=== PATIENT | female | born 1980 | race American Indian/Alaskan Native ===

== ENCOUNTER 2019-12-23 14:48 | Emergency (ER) | payer MEDICAID ==
[2019-12-23] MEDS ORDERED: cefTRIAXone/NS 2 GM/100 ML 2 GM/100 ML BAG IV SCH (15:07)
[2019-12-23] MEDS ORDERED: SODIUM CHLORIDE 0.9% 1000 ML IV SOLN IV ONE (15:07)
[2019-12-23] MEDS ORDERED: ONDANSETRON 4 MG/2 ML INJ IV ONE (15:13)
[2019-12-23] MEDS ORDERED: MORPHINE 4 MG/1 ML INJ IV ONE (15:14)
[2019-12-23] MEDS ORDERED: ACETAMINOPHEN 325 MG TAB PO ONE (15:14)
--- NOTE | 2019-12-23 15:37 | XRay Report ---
CHEST 1 VIEW 12/23/2019 2:29 PM INDICATION / CLINICAL INFORMATION: sepsis protocol. Fever COMPARISON: None available. FINDINGS: SUPPORT DEVICES: None. HEART / MEDIASTINUM: No significant abnormality. LUNGS / PLEURA: No significant pulmonary or pleural abnormality. No pneumothorax. ADDITIONAL FINDINGS: No significant additional findings. IMPRESSION: 1. No acute findings. Signer Name: Buck Moore MD Signed: 12/23/2019 3:33 PM Workstation Name: [id number]
[2019-12-23 16:03] LABS: Hematocrit 37.5 % (30.3-42.9); Hemoglobin 12.3 gm/dl (10.1-14.3); Mean Corpuscular HGB Conc 33 % (30-34); Mean Corpuscular Volume 94 fl (79-97); Platelet Count 321 K/mm3 (140-440); Red Cell Distribution Width 14.1 % (13.2-15.2)
[2019-12-23 16:04] LABS: Alanine Aminotransferase 10 units/L (7-56); Albumin 3.7 g/dL (3.9-5); BUN/Creatinine Ratio 8; Blood Urea Nitrogen 10 mg/dL (7-17); Calcium 9.6 mg/dL (8.4-10.2); Hemolysis Index 5
[2019-12-23 16:05] LABS: C-Reactive Protein 31.7 mg/dL (0.00-1.30)
[2019-12-23 16:56] LABS: Basophils % (Manual) 0 % (0.0-1.8); Eosinophils % (Manual) 0 % (0.0-4.3); Total Cells Counted 100
[2019-12-23 17:00] LABS: Large Platelets Few; Platelet Estimate Consistent w Auto; Toxic Granulation 1+; Toxic Vacuolation 1+
[2019-12-23 17:54] LABS: Bilirubin,Urine NEG (Negative); Blood,Urine LG (Negative); Color,Urine Yellow (Yellow); Mucus,Urine FEW /HPF; Urobilinogen,Urine < 2.0 mg/dL (<2.0)
--- NOTE | 2019-12-23 18:01 | Cat Scan Report ---
CTA CHEST WITH IV CONTRAST INDICATION: elevated ddimer. TECHNIQUE: Axial CT images were obtained through the chest after injection of 100 cc Omni 350 IV contrast. 3 maribell ne MIP reconstructions were produced. All CT scans at this location are performed using CT dose reduc tion for ALARA by means of automated exposure control. COMPARISON: None available. FINDINGS: PULMONARY ARTERIES: No pulmonary emboli. THORACIC AORTA: No acute abnormality. HEART: Normal. CORONARY ARTERIES: No significant calcification. PLEURA: No pleural effusion. No pneumothorax. LYMPH NODES: No significant adenopathy. LUNGS: No acute air space or interstitial disease. ADDITIONAL FINDINGS: None. UPPER ABDOMEN: Gastric bypass surgery. 1.7 cm right upper pole renal cyst. Hepatomegaly. SKELETAL STRUCTURES: No significant osseous abnormality. IMPRESSION: 1. No CT evidence for pulmonary embolism. 2. No acute findings. 3. Hepatomegaly and gastric bypass surgery Signer Name: Buck Moore MD Signed: 12/23/2019 5:57 PM Workstation Name: [id number]
[2019-12-23] MEDS ORDERED: levoFLOXacin 500 MG TAB PO ONE (18:42)
--- NOTE | 2019-12-23 18:42 | Emergency Department Report ---
ED General Adult HPI - General Chief complaint: Fever Stated complaint: BODYAHCE Time Seen by Provider: 12/23/19 15:09 Source: patient, EMS Mode of arrival: Stretcher Limitations: No Limitations - History of Present Illness Initial comments: Patient is a 39-year-old F [place] female who is presenting with some body aches for the past 2 weeks who will just developed fever today. States she had a minimal cough earlier today but in general has not been congested. She denies shortness of breath loss of taste or smell. She had 2 episodes of nausea vo miting this morning as well. Her only other complaint is some mild lower back pain but denies any diarrhea abdominal pain dysuria or abnormal vaginal bleeding. Severity scale (0 -10): 5 - Related Data Home Medications Medication Instructions Recorded Confirmed Last Taken No Known Home Medications [No 05/05/15 04/09/16 Unknown Reported Home Medications] Allergies Allergy/AdvReac Type Severity Reaction Status Date / Time NSAIDS (Non-Steroidal AdvReac Unknown Verified 12/23/19 15:10 Anti-Inflamma ED Review of Systems ROS: Stated complaint: BODYAHCE Other details as noted in HPI Comment: All other systems reviewed and negative ED Past Medical Hx - Past Medical History Previous Medical History?: No Hx Hypertension: No Hx Asthma: No - Surgical History Hx Breast Surgery: Yes (BREAST REDUCTION 2014) Additional Surgical History: HYSTERECTOMY; BUNION removed bilateral feet/ gastric sleeve c section - Social History Smoking Status: Never Smoker Substance Use Type: None - Medications Home Medications: Home Medications Medication Instructions Recorded Confirmed Last Taken Type No Known Home Medications [No 05/05/15 04/09/16 Unknown History Reported Home Medications] ED Physical Exam - General Limitations: No Limitations General appearance: alert, in no apparent distress - Head Head exam: Present: atraumatic, normocephalic - Eye Eye exam: Present: normal appearance, PERRL, EOMI - ENT ENT exam: Present: mucous membranes moist - Neck Neck exam: Present: normal inspection - Respiratory Respiratory exam: Present: normal lung sounds bilaterally. Absent: respiratory distress, wheezes, rales, rhonchi - Cardiovascular Cardiovascular Exam: Present: normal rhythm, tachycardia. Absent: systolic murmur, diastolic murmur, rubs, gallop - GI/Abdominal GI/Abdominal exam: Present: soft, normal bowel sounds. Absent: distended, tenderness, guarding, rebound - Extremities Exam Extremities exam: Present: normal inspection - Back Exam Back exam: Present: normal inspection - Neurological Exam Neurological exam: Present: alert, oriented X3 - Psychiatric Psychiatric exam: Present: normal affect, normal mood - Skin Skin exam: Present: warm, dry, intact, normal color. Absent: rash ED Course Vital Signs 12/23/19 12/23/19 12/23/19 14:57 15:10 15:30 Temperature 102.3 F H Pulse Rate 124 H 121 H Respiratory 28 H 25 H Rate Blood Pressure 105/72 Blood Pressure 108/66 [Left] O2 Sat by Pulse 100 94 Oximetry 12/23/19 12/23/19 12/23/19 16:00 16:30 17:00 Temperature Pulse Rate 138 H 114 H 110 H Respiratory 21 23 20 Rate Blood Pressure 99/72 115/71 111/68 Blood Pressure [Left] O2 Sat by Pulse 97 94 Oximetry - Reevaluation(s) Reevaluation #1: 12/23/19 18:39 Patient states she is feeling much improved. She is had decrease of her body aches which was her main complaint. Patient states her nausea is improved as well. ED Medical Decision Making - Lab Data Result diagrams: 12/23/19 15:28 12/23/19 15:32 Lab Results 12/23/19 12/23/19 12/23/19 Range/Units 15:28 15:28 15:28 WBC 20.9 H (4.5-11.0) K/mm3 RBC 4.00 (3.65-5.03) M/mm3 Hgb 12.3 (10.1-14.3) gm/dl Hct 37.5 (30.3-42.9) % MCV 94 (79-97) fl MCH 31 (28-32) pg MCHC 33 (30-34) % RDW 14.1 (13.2-15.2) % Plt Count 321 (140-440) K/mm3 Add Manual Diff Complete Total Counted 100 Seg Neuts % (Manual) 91.0 H (40.0-70.0) % Band Neutrophils % 0 % Lymphocytes % (Manual) 4.0 L (13.4-35.0) % Reactive Lymphs % (Man) 0 % Monocytes % (Manual) 5.0 (0.0-7.3) % Eosinophils % (Manual) 0 (0.0-4.3) % Basophils % (Manual) 0 (0.0-1.8) % Metamyelocytes % 0 % Myelocytes % 0 % Promyelocytes % 0 % Blast Cells % 0 % Nucleated RBC % Not Reportable Seg Neutrophils # Man 19.0 H (1.8-7.7) K/mm3 Band Neutrophils # 0.0 K/mm3 Lymphocytes # (Manual) 0.8 L (1.2-5.4) K/mm3 Abs React Lymphs (Man) 0.0 K/mm3 Monocytes # (Manual) 1.0 H (0.0-0.8) K/mm3 Eosinophils # (Manual) 0.0 (0.0-0.4) K/mm3 Basophils # (Manual) 0.0 (0.0-0.1) K/mm3 Metamyelocytes # 0.0 K/mm3 Myelocytes # 0.0 K/mm3 Promyelocytes # 0.0 K/mm3 Blast Cells # 0.0 K/mm3 WBC Morphology Not Reportable Hypersegmented Neuts Not Reportable Hyposegmented Neuts Not Reportable Hypogranular Neuts Not Reportable Smudge Cells Not Reportable Toxic Granulation 1+ Toxic Vacuolation 1+ Dohle Bodies Not Reportable Pelger-Huet Anomaly Not Reportable Gaetano Rods Not Reportable Platelet Estimate Consistent w auto Clumped Platelets Not Reportable Plt Clumps, EDTA Not Reportable Large Platelets Few Giant Platelets Not Reportable Platelet Satelliting Not Reportable Plt Morphology Comment Not Reportable RBC Morphology Not Reportable Dimorphic RBCs Not Reportable Polychromasia Not Reportable Hypochromasia Not Reportable Poikilocytosis Not Reportable Anisocytosis Not Reportable Microcytosis Not Reportable Macrocytosis Not Reportable Spherocytes Not Reportable Pappenheimer Bodies Not Reportable Sickle Cells Not Reportable Target Cells Not Reportable Tear Drop Cells Not Reportable Ovalocytes Not Reportable Helmet Cells Not Reportable Gtz-[place] Bodies Not Reportable [place] Rings Not Reportable Paddy Cells Not Reportable Bite Cells Not Reportable Crenated Cell Not Reportable Elliptocytes Not Reportable Acanthocytes (Spur) Not Reportable Rouleaux Not Reportable Hemoglobin C Crystals Not Reportable Schistocytes Not Reportable Malaria parasites Not Reportable Dave Bodies Not Reportable Hem Pathologist Commnt No D-Dimer (0-234) ng/mlDDU Sodium 132 L (137-145) mmol/L Potassium 3.1 L (3.6-5.0) mmol/L Chloride 95.0 L (98-107) mmol/L Carbon Dioxide 22 (22-30) mmol/L Anion Gap 18 mmol/L BUN 10 (7-17) mg/dL Creatinine 1.2 (0.6-1.2) mg/dL Estimated GFR > 60 ml/min BUN/Creatinine Ratio 8 % Glucose 119 H (65-100) mg/dL Lactic Acid 1.80 (0.7-2.0) mmol/L Calcium 9.6 (8.4-10.2) mg/dL Ferritin (10.0-200.0) ng/mL Total Bilirubin 0.80 (0.1-1.2) mg/dL AST 10 (5-40) units/L ALT 10 (7-56) units/L Alkaline Phosphatase 72 (35-129) units/L Lactate Dehydrogenase (91-180) units/L Troponin T < 0.010 (0.00-0.029) ng/mL C-Reactive Protein (0.00-1.30) mg/dL Total Protein 7.8 (6.3-8.2) g/dL Albumin 3.7 L (3.9-5) g/dL Albumin/Globulin Ratio 0.9 % Procalcitonin (<0.15) ng/mL Urine Color (Yellow) Urine Turbidity (Clear) Urine pH (5.0-7.0) Ur Specific [place] (1.003-1.030) Urine Protein (Negative) mg/dL Urine Glucose (UA) (Negative) mg/dL Urine Ketones (Negative) mg/dL Urine Blood (Negative) Urine Nitrite (Negative) Urine Bilirubin (Negative) Urine Urobilinogen (<2.0) mg/dL Ur Leukocyte Esterase (Negative) Urine WBC (Auto) (0.0-6.0) /HPF Urine RBC (Auto) (0.0-6.0) /HPF U Epithel Cells (Auto) (0-13.0) /HPF Urine Mucus /HPF Urine Yeast (Budding) /HPF Influenza A (Rapid) (Negative) Influenza B (Rapid) (Negative) 08/30/20 08/30/20 08/30/20 Range/Units 15:32 15:32 15:32 WBC (4.5-11.0) K/mm3 RBC (3.65-5.03) M/mm3 Hgb (10.1-14.3) gm/dl Hct (30.3-42.9) % MCV (79-97) fl MCH (28-32) pg MCHC (30-34) % RDW (13.2-15.2) % Plt Count (140-440) K/mm3 Add Manual Diff Total Counted Seg Neuts % (Manual) (40.0-70.0) % Band Neutrophils % % Lymphocytes % (Manual) (13.4-35.0) % Reactive Lymphs % (Man) % Monocytes % (Manual) (0.0-7.3) % Eosinophils % (Manual) (0.0-4.3) % Basophils % (Manual) (0.0-1.8) % Metamyelocytes % % Myelocytes % % Promyelocytes % % Blast Cells % % Nucleated RBC % Seg Neutrophils # Man (1.8-7.7) K/mm3 Band Neutrophils # K/mm3 Lymphocytes # (Manual) (1.2-5.4) K/mm3 Abs React Lymphs (Man) K/mm3 Monocytes # (Manual) (0.0-0.8) K/mm3 Eosinophils # (Manual) (0.0-0.4) K/mm3 Basophils # (Manual) (0.0-0.1) K/mm3 Metamyelocytes # K/mm3 Myelocytes # K/mm3 Promyelocytes # K/mm3 Blast Cells # K/mm3 WBC Morphology Hypersegmented Neuts Hyposegmented Neuts Hypogranular Neuts Smudge Cells Toxic Granulation Toxic Vacuolation Dohle Bodies Pelger-Huet Anomaly Gaetano Rods Platelet Estimate Clumped Platelets Plt Clumps, EDTA Large Platelets Giant Platelets Platelet Satelliting Plt Morphology Comment RBC Morphology Dimorphic RBCs Polychromasia Hypochromasia Poikilocytosis Anisocytosis Microcytosis Macrocytosis Spherocytes Pappenheimer Bodies Sickle Cells Target Cells Tear Drop Cells Ovalocytes Helmet Cells Gtz-[place] Bodies [place] Rings [place] Cells Bite Cells Crenated Cell Elliptocytes Acanthocytes (Spur) Rouleaux Hemoglobin C Crystals Schistocytes Malaria parasites Dave Bodies Hem Pathologist Commnt D-Dimer 1098.82 H (0-234) ng/mlDDU Sodium (137-145) mmol/L Potassium (3.6-5.0) mmol/L Chloride (98-107) mmol/L Carbon Dioxide (22-30) mmol/L Anion Gap mmol/L BUN (7-17) mg/dL Creatinine (0.6-1.2) mg/dL Estimated GFR ml/min BUN/Creatinine Ratio % Glucose 121 H (65-100) mg/dL Lactic Acid (0.7-2.0) mmol/L Calcium (8.4-10.2) mg/dL Ferritin (10.0-200.0) ng/mL Total Bilirubin (0.1-1.2) mg/dL AST (5-40) units/L ALT (7-56) units/L Alkaline Phosphatase (35-129) units/L Lactate Dehydrogenase 160 (91-180) units/L Troponin T (0.00-0.029) ng/mL C-Reactive Protein 31.70 H (0.00-1.30) mg/dL Total Protein (6.3-8.2) g/dL Albumin (3.9-5) g/dL Albumin/Globulin Ratio % Procalcitonin 192.65 (<0.15) ng/mL Urine Color (Yellow) Urine Turbidity (Clear) Urine pH (5.0-7.0) Ur Specific [place] (1.003-1.030) Urine Protein (Negative) mg/dL Urine Glucose (UA) (Negative) mg/dL Urine Ketones (Negative) mg/dL Urine Blood (Negative) Urine Nitrite (Negative) Urine Bilirubin (Negative) Urine Urobilinogen (<2.0) mg/dL Ur Leukocyte Esterase (Negative) Urine WBC (Auto) (0.0-6.0) /HPF Urine RBC (Auto) (0.0-6.0) /HPF U Epithel Cells (Auto) (0-13.0) /HPF Urine Mucus /HPF Urine Yeast (Budding) /HPF Influenza A (Rapid) (Negative) Influenza B (Rapid) (Negative) 12/23/19 12/23/19 12/23/19 Range/Units 15:32 17:22 17:22 WBC (4.5-11.0) K/mm3 RBC (3.65-5.03) M/mm3 Hgb (10.1-14.3) gm/dl Hct (30.3-42.9) % MCV (79-97) fl MCH (28-32) pg MCHC (30-34) % RDW (13.2-15.2) % Plt Count (140-440) K/mm3 Add Manual Diff Total Counted Seg Neuts % (Manual) (40.0-70.0) % Band Neutrophils % % Lymphocytes % (Manual) (13.4-35.0) % Reactive Lymphs % (Man) % Monocytes % (Manual) (0.0-7.3) % Eosinophils % (Manual) (0.0-4.3) % Basophils % (Manual) (0.0-1.8) % Metamyelocytes % % Myelocytes % % Promyelocytes % % Blast Cells % % Nucleated RBC % Seg Neutrophils # Man (1.8-7.7) K/mm3 Band Neutrophils # K/mm3 Lymphocytes # (Manual) (1.2-5.4) K/mm3 Abs React Lymphs (Man) K/mm3 Monocytes # (Manual) (0.0-0.8) K/mm3 Eosinophils # (Manual) (0.0-0.4) K/mm3 Basophils # (Manual) (0.0-0.1) K/mm3 Metamyelocytes # K/mm3 Myelocytes # K/mm3 Promyelocytes # K/mm3 Blast Cells # K/mm3 WBC Morphology Hypersegmented Neuts Hyposegmented Neuts Hypogranular Neuts Smudge Cells Toxic Granulation Toxic Vacuolation Dohle Bodies Pelger-Huet Anomaly Gaetano Rods Platelet Estimate Clumped Platelets Plt Clumps, EDTA Large Platelets Giant Platelets Platelet Satelliting Plt Morphology Comment RBC Morphology Dimorphic RBCs Polychromasia Hypochromasia Poikilocytosis Anisocytosis Microcytosis Macrocytosis Spherocytes Pappenheimer Bodies Sickle Cells Target Cells Tear Drop Cells Ovalocytes Helmet Cells Gtz-[place] Bodies [place] Rings [place] Cells Bite Cells Crenated Cell Elliptocytes Acanthocytes (Spur) Rouleaux Hemoglobin C Crystals Schistocytes Malaria parasites Adve Bodies Hem Pathologist Commnt D-Dimer (0-234) ng/mlDDU Sodium (137-145) mmol/L Potassium (3.6-5.0) mmol/L Chloride (98-107) mmol/L Carbon Dioxide (22-30) mmol/L Anion Gap mmol/L BUN (7-17) mg/dL Creatinine (0.6-1.2) mg/dL Estimated GFR ml/min BUN/Creatinine Ratio % Glucose (65-100) mg/dL Lactic Acid (0.7-2.0) mmol/L Calcium (8.4-10.2) mg/dL Ferritin 348.1 H (10.0-200.0) ng/mL Total Bilirubin (0.1-1.2) mg/dL AST (5-40) units/L ALT (7-56) units/L Alkaline Phosphatase (35-129) units/L Lactate Dehydrogenase (91-180) units/L Troponin T (0.00-0.029) ng/mL C-Reactive Protein (0.00-1.30) mg/dL Total Protein (6.3-8.2) g/dL Albumin (3.9-5) g/dL Albumin/Globulin Ratio % Procalcitonin (<0.15) ng/mL Urine Color Yellow (Yellow) Urine Turbidity Cloudy (Clear) Urine pH 6.0 (5.0-7.0) Ur Specific [place] 1.010 (1.003-1.030) Urine Protein 30 mg/dl (Negative) mg/dL Urine Glucose (UA) Neg (Negative) mg/dL Urine Ketones Tr (Negative) mg/dL Urine Blood Lg (Negative) Urine Nitrite Pos (Negative) Urine Bilirubin Neg (Negative) Urine Urobilinogen < 2.0 (<2.0) mg/dL Ur Leukocyte Esterase Lg (Negative) Urine WBC (Auto) 120.0 H (0.0-6.0) /HPF Urine RBC (Auto) 16.0 (0.0-6.0) /HPF U Epithel Cells (Auto) 11.0 (0-13.0) /HPF Urine Mucus Few /HPF Urine Yeast (Budding) 1+ /HPF Influenza A (Rapid) Negative (Negative) Influenza B (Rapid) Negative (Negative) - EKG Data -: EKG Interpreted by Fl EKG shows normal: sinus rhythm, axis (slightly rightward), intervals, QRS complexes, ST-T waves - Radiology Data CXR [facility] [address] [place] [address] Cat Scan Report Signed Patient: MOISES LUI MR#: [id number] : 1980 Acct:[id number] Age/Sex: 39 / F ADM Date: 12/23/19 Loc: ED Attending Dr: Ordering Physician: PK BRUNO MD Date of Service: 12/23/19 Procedure(s): CT angio chest Accession Number(s): [id number] cc: PK BRUNO MD CTA CHEST WITH IV CONTRAST INDICATION: elevated ddimer. TECHNIQUE: Axial CT images were obtained through the chest after injection of 100 cc Omni 350 IV contrast. 3 plane MIP reconstructions were produced. All CT scans at this location are performed using CT dose reduction for ALARA by means of automated exposure control. COMPARISON: None available. FINDINGS: PULMONARY ARTERIES: No pulmonary emboli. THORACIC AORTA: No acute abnormality. HEART: Normal. CORONARY ARTERIES: No significant calcification. PLEURA: No pleural effusion. No pneumothorax. LYMPH NODES: No significant adenopathy. LUNGS: No acute air space or interstitial disease. ADDITIONAL FINDINGS: None. UPPER ABDOMEN: Gastric bypass surgery. 1.7 cm right upper pole renal cyst. Hepatomegaly. SKELETAL STRUCTURES: No significant osseous abnormality. IMPRESSION: 1. No CT evidence for pulmonary embolism. 2. No acute findings. 3. Hepatomegaly and gastric bypass surgery Signer Name: Buck Moore MD Signed: 12/23/2019 5:57 PM Workstation Name: [id number] - Medical Decision Making Patient is a 39-year-old F [place] female who is complaining of body aches. Generalized patient gestation feels ill. She has some mild nausea and states she felt as though she needed to cough several times this morning. Laboratory studies do show that her inflammatory markers are elevated however she had no signs of renal failure or lactic acidosis. Blood pressures adequate. Patient does not appear to be in sepsis. Patient urinalysis does show signs of infection and the patient will be started on Levaquin. Patient feels as though she is improving and would like to trial be treated at home. Because Levaquin has the same bioavailability oral and IV do think this is acceptable since she is no longer nauseous and feeling much improved. Patient is given first dose now and can continue with Levaquin for the next 10 days. Critical Care Time: Yes (30) Critical care attestation.: If time is entered above; I have spent that time in minutes in the direct care of this critically ill patient, excluding procedure time. ED Disposition Clinical Impression: Pyelonephritis Disposition: DC-01 TO HOME OR SELFCARE Is pt being admited?: No Does the pt Need Aspirin: No Condition: Stable Instructions: Acute Pyelonephritis (ED) Referrals: PRIMARY CARE, [Primary Care Provider] - 3-5 Days Time of Disposition: 18:42
[2019-12-23] MEDS ORDERED: HYDROcodone/ACETAMINOPHEN 10-325MG TAB PO ONE (20:55)
[2019-12-23 21:05] VITALS: BP 138/79
== END 2019-12-23 21:01 | disposition home or self-care (01) ==
LOC: ED 14:48
DX: N12 Tubulo-interstitial nephritis, not specified as acute or chronic (principal); Z90.710 Acquired absence of both cervix and uterus; Z98.890 Other specified postprocedural states; Z88.6 Allergy status to analgesic agent
CPT/HCPCS: 36415; 71045; 71275; 80053; 81001; 82140; 82728; 82947; 83520; 83615; 84145; 84484; 85007; 85025; 85379; 86140; 87040; 87400; 93005; 96365; 96375; 99285; J0696; J2270; J2405; J7030; Q9967

== ENCOUNTER 2020-01-18 05:30 | Emergency (ER) | payer MEDICAID ==
[2020-01-18] MEDS ORDERED: SODIUM CHLORIDE 0.9% 1000 ML 1,000 ML IV ONE ×3 (06:50→09:42)
[2020-01-18] MEDS ORDERED: METOCLOPRAMIDE 10 MG/2 ML INJ IV ONE (06:50)
[2020-01-18] MEDS ORDERED: methylPREDNISolone Sod Suc 500 MG in SODIUM CHLORIDE 0.9% 100 ML IV ONE (06:50)
[2020-01-18] MEDS ORDERED: methylPREDNISolone Sod Succinate 125 MG/2 ML INJ IV ONE (06:52)
[2020-01-18] MEDS ORDERED: methylPREDNISolone Sod Succinate 125 MG/2 ML INJ ONE (06:55)
[2020-01-18] MEDS ORDERED: ONDANSETRON 4 MG/2 ML INJ IV ONE (08:07)
--- NOTE | 2020-01-18 08:09 | Emergency Department Report ---
ED General Adult HPI - General Chief complaint: Headache Stated complaint: HEADACHE PUI?: No Time Seen by Provider: 01/18/20 07:47 Source: patient, RN notes reviewed Mode of arrival: Ambulatory Limitations: No Limitations - History of Present Illness Initial comments: The patient was evaluated in the emergency department for symptoms described in the history of present illness. He/she was evaluated in the context of the global COVID-19 pandemic, which necessitated consideration that the patient might be at risk for infection with the virus that causes COVID-19. Institutional protocols and algorithms that pertain to the evaluation of patients at risk for COVID-19 are in a state of rapid change based on information released by regulatory bodies including the CDC and federal and state organizations. These policies and algorithms were followed during the patient's care in the emergency department. Please note that these policies, procedures and recommendations changed on a rapid basis. During the history and physical examination, I am family welfare social work professor and escorted by nurse Felicia Hussein The patient is a pleasant 39-year-old female. She is not known to myself previously. The patient states that she is not . She states that she has not delivered or given within the past 6 weeks. The patient presents to the ER today with a complaint of nontraumatic frontal sinus headache. The headache is not sudden or thunderclap in nature. Headache is not the worst headache of her life. The headache is not maximal in intensity. The headache is present intermittently over the past 3 days. There is no trauma, no neck pain, no neck stiffness, no loss of vision, no sore throat. No loss of taste or smell, no otologic/dental pain, positive dry cough, no dysuria. Of note, the patient recently had elective abdominal plasty performed within the past few weeks by a Dr Calixto, who the patient states "[place] She states that she recently saw him this week for a postoperative vis it and stated "he said everything looked okay." She has mild abdominal discomfort from her surgical intervention, but this is not significant, she has KALIE drains in place, draining bloody serous fluid, but reports that from an abdominal surgical perspective, she "feels okay." There is no chest pain, there is no shortness of breath. -: Gradual Location: head Quality: aching Consistency: intermittent Improves with: rest Worsens with: other (Percussion on the forehead, exposure to light) - Related Data Previous Rx's Medication Instructions Recorded Last Taken Type Ondansetron [Zofran Odt] 4 mg PO Q8HR #10 tab.rapdis 12/23/19 Unknown Rx Acetaminophen [Non-Aspirin Extra 500 mg PO Q6HR PRN #30 tablet 01/18/20 Unknown Rx Strength] Amoxicillin [Trimox CAP] 1,000 mg PO Q8H #28 capsule 01/18/20 Unknown Rx Azithromycin [Zithromax TAB] 250 mg PO QDAY #4 tablet 01/18/20 Unknown Rx Ferrous Sulfate [Ferrous Sulfate 324 mg PO TID #90 tablet.dr 01/18/20 Unknown Rx 324 MG] Magnesium Oxide 400 mg PO QDAY #30 tablet 01/18/20 Unknown Rx Metoclopramide [Reglan] 10 mg PO QID PRN #30 tablet 01/18/20 Unknown Rx Allergies Allergy/AdvReac Type Severity Reaction Status Date / Time NSAIDS (Non-Steroidal AdvReac Unknown Verified 12/23/19 15:10 Anti-Inflamma ED Review of Systems ROS: Stated complaint: HEADACHE Other details as noted in HPI Constitutional: denies: fever, malaise, weakness Eyes: denies: eye discharge, vision change ENT: denies: throat pain Respiratory: cough Cardiovascular: denies: chest pain Gastrointestinal: denies: nausea, vomiting, diarrhea Neurological: headache. denies: weakness, numbness, paresthesias, confusion ED Past Medical Hx - Past Medical History Previous Medical History?: No Hx Hypertension: No Hx Asthma: No - Surgical History Past Surgical History?: Yes Hx Breast Surgery: Yes (BREAST REDUCTION 2014) Additional Surgical History: HYSTERECTOMY; BUNION removed bilateral feet/ gastric sleeve c section - Social History Smoking Status: Never Smoker - Medications Home Medications: Home Medications Medication Instructions Recorded Confirmed Last Taken Type Ondansetron [Zofran Odt] 4 mg PO Q8HR #10 tab.rapdis 12/23/19 Unknown Rx Acetaminophen [Non-Aspirin Extra 500 mg PO Q6HR PRN #30 tablet 01/18/20 Unknown Rx Strength] Amoxicillin [Trimox CAP] 1,000 mg PO Q8H #28 capsule 01/18/20 Unknown Rx Azithromycin [Zithromax TAB] 250 mg PO QDAY #4 tablet 01/18/20 Unknown Rx Ferrous Sulfate [Ferrous Sulfate 324 mg PO TID #90 tablet. 01/18/20 Unknown Rx 324 MG] Magnesium Oxide 400 mg PO QDAY #30 tablet 01/18/20 Unknown Rx Metoclopramide [Reglan] 10 mg PO QID PRN #30 tablet 01/18/20 Unknown Rx ED Physical Exam - General Limitations: No Limitations General appearance: alert, in no apparent distress - Head Head exam: Present: atraumatic, normocephalic, other (There is frontal sinus tenderness) - Eye Eye exam: Present: normal appearance, PERRL, EOMI. Absent: nystagmus - ENT ENT exam: Present: normal exam, normal orophraynx, mucous membranes moist, TM's normal bilaterally, normal external ear exam - Neck Neck exam: Present: normal inspection, full ROM. Absent: tenderness, meningismus - Respiratory Respiratory exam: Present: normal lung sounds bilaterally. Absent: respiratory distress, wheezes, rales, rhonchi, stridor, decreased breath sounds - Cardiovascular Cardiovascular Exam: Present: normal rhythm, tachycardia, normal heart sounds. Absent: systolic murmur, diastolic murmur, rubs, gallop - GI/Abdominal GI/Abdominal exam: Present: soft, other (Surgical site appears to be clean, healing well, with no pus or streaking.Caleb-Nuñez drains are intact, and draining bloody serous fluid. There are postoperative ecchymosis noted, and there is appropriate postoperative tenderness. There is no redness, pus or streaking.) - Extremities Exam Extremities exam: Present: normal inspection, full ROM, other (2+ pulses noted in the bilateral upper and lower extremities. There is no palpable cord. negative Homans sign. Muscular compartments are soft. The pelvis is stable.). Absent: pedal edema, calf tenderness - Back Exam Back exam: Present: normal inspection, full ROM. Absent: tenderness, CVA te nderness (R), CVA tenderness (L), paraspinal tenderness, vertebral tenderness - Neurological Exam Neurological exam: Present: alert, oriented X3, other (No facial droop. Tongue midline. Extraocular movements intact bilaterally. Facial sensation intact to light touch in V1, V2, V3 distribution bilaterally. 5 and a 5 strength in 4 extremities. Sensation intact to light touch in 4 extremities.). Absent: motor sensory deficit - Psychiatric Psychiatric exam: Present: normal affect, normal mood - Skin Skin exam: Present: warm, dry, intact, normal color. Absent: rash ED Course Vital Signs 01/18/20 01/18/20 01/18/20 05:33 07:45 08:09 Temperature 98 F 102.2 F H Pulse Rate 122 H 116 H Respiratory 18 25 H Rate Blood Pressure 125/76 Blood Pressure [Left] O2 Sat by Pulse 97 100 Oximetry 01/18/20 01/18/20 01/18/20 09:27 09:28 10:19 Temperature 98.3 F Pulse Rate 111 H 104 H Respiratory 17 Rate Blood Pressure Blood Pressure 114/63 101/63 [Left] O2 Sat by Pulse 100 Oximetry - Reevaluation(s) Reevaluation #1: 01/18/20 09:10 Differential diagnosis, including but not limited to: Viral syndrome, influenza, strep, pneumonia, COVID, migraine headache, tension headache, cluster headache, sinusitis Assessment and plan: 39-year-old female with a fever and tachycardia, who appears very well, without meningeal signs, GCS of 15, without evidence of surgical infection on her abdomen. Her main complaint is nontraumatic headache. Suspect viral syndrome Versus frontal sinusitis. Plan is to check basic laboratory studies, obtain CT scan of the brain, administer antipyretics, and supportive care, and reassess. Reevaluation #2: 01/18/20 10:27 Patient resting comfortably at this time, and she is in no acute distress. She is not hypoxic. CT scan of the brain negative for acute findings. X-ray of the chest suggested left-sided pneumonia. Patient has a mild anemia, asymptomatic, mild hypomagnesemia, otherwise, unremarkable, rapid strep, rapid flu negative. Tachycardia much improved, heart rate 104 bpm at this time. Patient is suitable for trial of oral outpatient management at this time. She will be started on appropriate antibiotics. She will need to follow-up with a primary care doctor. Return precautions are reviewed. ED Medical Decision Making - Lab Data Result diagrams: 01/18/20 08:28 01/18/20 08:28 Vital Signs 01/18/20 01/18/20 01/18/20 05:33 07:45 08:09 Temperature 98 F 102.2 F H Pulse Rate 122 H 116 H Respiratory 18 25 H Rate Blood Pressure 125/76 O2 Sat by Pulse 97 100 Oximetry Lab Results 01/18/20 01/18/20 01/18/20 Range/Units 08:28 08:28 Unknown Hgb 9.6 L (10.1-14.3) gm/dl Hct 27.8 L (30.3-42.9) % Plt Count 277 (140-440) K/mm3 PT 14.0 (12.2-14.9) Sec. INR 1.07 (0.87-1.13) Urine Color Straw (Yellow) Urine Turbidity Clear (Clear) Urine pH 8.0 H (5.0-7.0) Ur Specific Whitney 1.006 (1.003-1.030) Urine Protein <15 mg/dl (Negative) mg/dL Urine Glucose (UA) Neg (Negative) mg/dL Urine Ketones Neg (Negative) mg/dL Urine Blood Mod (Negative) Urine Nitrite Neg (Negative) Urine Bilirubin Neg (Negative) Urine Urobilinogen < 2.0 (<2.0) mg/dL Ur Leukocyte Esterase Neg (Negative) Urine WBC (Auto) 3.0 (0.0-6.0) /HPF Urine RBC (Auto) 19.0 (0.0-6.0) /HPF U Epithel Cells (Auto) 2.0 (0-13.0) /HPF - Radiology Data Radiology results: pending, report reviewed, image reviewed Print Report Referring Physician: CRYSTAL MORILLO Patient Name: MOISES LUI Date of : 1980 Sex: Female Report Date: 2020-01-18 Report Status: Finalized Findings [facility] [address] [place] [address] XRay Report Signed Patient: MOISES LUI MR#: [id number] : 1980 Acct:[id number] Age/Sex: 39 / F ADM Date: 01/18/20 Loc: ED Attending Dr: Ordering Physician: CRYSTAL MORILLO MD Date of Service: 01/18/20 Procedure(s): XR chest 1V ap Accession Number(s): [id number] cc: CRYSTAL MORILLO MD Fluoro Time In Minutes: CHEST 1 VIEW 9:26 AM INDICATION / CLINICAL INFORMATION: Cough and fever. COMPARISON: 12/23/19. FINDINGS: SUPPORT DEVICES: None. HEART / MEDIASTINUM: The heart size and pulmonary vasculature are normal. LUNGS / PLEURA: Low lung volumes. Mild increased opacity in the left medial lung base with partial obscuration of the hemidiaphragm, new since the prior study. No pneumothorax. ADDITIONAL FINDINGS: No significant additional findings. IMPRESSION: Mild increased opacity in the left medial lung base compared to the prior study may be related to developing atelectasis or pneumonia. Signer Name: Ravinder Marie MD Signed: 01/18/2020 10:16 AM Workstation Name: [id number] Transc ribed By: RT Dictated By: Ravinder Marie MD Electronically Authenticated By: Ravinder Marie MD Signed Date/Time: 01/18/20 1016 DD/ 1014 TD/TT: Print Report Referring Physician: CRYSTAL MORILLO Patient Name: MOISES LUI Date of : 1980 Sex: Female Report Date: 2020-01-18 Report Status: Finalized Findings [facility] [address] [place] [id number] Cat Scan Report Signed Patient: MOISES LUI MR#: [id number] : 1980 Acct:[id number] Age/Sex: 39 / F ADM Date: 01/18/20 Loc: ED Attending Dr: Ordering Physician: CRYSTAL MORILLO MD Date of Service: 01/18/20 Procedure(s): CT head/brain wo con Accession Number(s): [id number] cc: CRYSTAL SCHWARTZ MD CT HEAD WITHOUT CONTRAST INDICATION / CLINICAL INFORMATION: Headache. Febrile illness.. TECHNIQUE: All CT scans at this location are performed using CT dose reduction for ALARA by means of automated exposure control. COMPARISON: None available. FINDINGS: LIMITATIONS: Beam hardening artif act secondary to a large left-sided aerating is a limiting factor on this study. HEMORRHAGE: No evidence of intracranial hemorrhage or extra-axial fluid collection. EXTRA-AXIAL SPACES: Cortical sulci, sylvian fissures and basilar cisterns have an unremarkable appearance. VENTRICULAR SYSTEM: The ventricular system is of normal size and configuration. CEREBRAL PARENCHYMA: No areas of abnormal brain parenchymal attenuation are identified. There is no indication of recent infarction. MIDLINE SHIFT OR HERNIATION: There is no mass effect. CEREBELLUM / BRAINSTEM: Brainstem and cerebellum have an unremarkable appearance. MIDLINE STRUCTURES:No abnormalities of the pituitary gland or pineal region are identified. INTRACRANIAL VESSELS:No abnormalities are identified on this noncontrast head CT. ORBITS: visualized portions of the orbits have an unremarkable appearance. SOFT TISSUES of HEAD: No significant abnormality. CALVARIUM: Evaluation of bone windows reveals no abnormalities. PARANASAL SINUSE S / MASTOID AIR CELLS: Paranasal sinuses are free from inflammatory mucosal disease. Mastoid air cells are normally pneumatized. ADDITIONAL FINDINGS: None. IMPRESSION: 1. No intracranial abnormalities are identified on head CT without contrast. Signer Name: Ho Hawk MD Signed: 01/18/2020 9:21 AM Workstation Name: [id number] Transcribed By: Dictated By: Ho Hawk MD Electronically Authenticated By: Ho Hawk MD Signed Date/Time: 01/18/20920 DD/ 0 TD/TT: Print Report Referring Physician: PK BRUNO Patient Name: MOISES LUI Date of : 1980 Sex: Female Report Date: 2019-12-23 Report Status: [place] [address] Cat Scan Report Signed Patient: MOISES LUI MR#: [id number] : 1980 Acct:[id number] Age/Sex: 39 / F ADM Date: 12/23/19 Loc: ED Attending Dr: Ordering Physician: PK BRUNO MD Date of Service: 12/23/19 Procedure(s): CT angio chest Accession Number(s): [id number] cc: PK BRUNO MD CTA CHEST WITH IV CONTRAST INDICATION: elevated ddimer. TECHNIQUE: Axial CT images were obtained through the chest after injection of 100 cc Omni 350 IV contrast. 3 plane MIP reconstructions were produced. All CT scans at this location are performed using CT dose reduction for ALARA by means of automated exposure control. COMPARISON: None available. FINDINGS: PULMONARY ARTERIES: No pulmonary emboli. THORACIC AORTA: No acute abnormality. HEART: Normal. CORONARY ARTERIES: No significant calcification. PLEURA: No pleural effusion. No pneumothorax. LYMPH NODES: No significant adenopathy. LUNGS: No acute air space or interstitial disease. ADDITIONAL FINDINGS: None. UPPER ABDOMEN: Gastric bypass surgery. 1.7 cm right upper pole renal cyst. Hepatomegaly. SKELETAL STRUCTURES: No significant osseous abnormality. IMPRESSION: 1. No CT evidence for pulmonary embolism. 2. No acute findings. 3. Hepatomegaly and gastric bypass surgery Signer Name: Buck Moore MD Signed: 12/23/2019 5:57 PM Workstation Name: [id number] Critical care attestation.: If time is entered above; I have spent that time in minutes in the direct care of this critically ill patient, excluding procedure time. ED Disposition Clinical Impression: Acute febrile illness, Headache, Anemia, Hypomagnesemia Disposition: - TO HOME OR SELFCARE Is pt being admited?: No Does the pt Need Aspirin: No Condition: Stable Instructions: COVID-19, Anemia (ED), Fever in Adults (ED) Additional Instructions: Cultures were sent today, and results will be available in the next 3 to 5 days. Please have a primary care doctor contact the medical records department to obtain culture results. Patient was found to have an opacity on chest x-ray today, uncertain if pneumonia. It is also possible that the patient may have COVID-19. Take the antibiotics as prescribed, avoid consumption of Motrin, ibuprofen, Naprosyn, Aleve, heavy and spicy foods, alcohol and smoke products. Recommend that patient self isolate, self quarantining, wash hands frequently, thoroughly and often, and follow-up for a recheck with a primary care doctor within the next 3 to 5 days. Patient was also found to have low magnesium, and anemia, therefore, take the magnesium prescription as directed, and iron sulfate as directed. Iron sulfate may cause constipation, bloating, and black tarry stool. Please follow-up with your outpatient surgeon as scheduled. Please return to the emergency room right away with new pain, worsening pain, migration of pain, projectile vomiting, change in mental status, confusion, inability to tolerate liquid feeds, new, worsened or different symptoms not present on the initial emergency room evaluation. Referrals: EVE YOUNG MD [Staff Physician] - 3-5 Days [facility] [Provider Group] - 3-5 Days Forms: Work/School Release Form(ED)
[2020-01-18] MEDS ORDERED: ACETAMINOPHEN 500 MG TAB PO ONE (08:13)
[2020-01-18 08:46] LABS: Bilirubin,Urine NEG (Negative); Blood,Urine MOD (Negative); Color,Urine Straw (Yellow); Protein,Urine <15 mg/dL mg/dL (Negative); Urobilinogen,Urine < 2.0 mg/dL (<2.0)
[2020-01-18 08:52] LABS: Hematocrit 27.8 % (30.3-42.9); Hemoglobin 9.6 gm/dl (10.1-14.3)
[2020-01-18 09:03] LABS: INR 1.07 (0.87-1.13)
[2020-01-18 09:12] LABS: BUN/Creatinine Ratio 8; Blood Urea Nitrogen 6 mg/dL (7-17); Calcium 8.9 mg/dL (8.4-10.2); Hemolysis Index 5
--- NOTE | 2020-01-18 09:26 | Cat Scan Report ---
CT HEAD WITHOUT CONTRAST INDICATION / CLINICAL INFORMATION: Headache. Febrile illness.. TECHNIQUE: All CT scans at this location are performed using CT dose reduction for ALARA by means of automated e xposure control. COMPARISON: None available. FINDINGS: LIMITATIONS: Beam hardening artifact secondary to a large left-sided aerating is a limiting factor on this study. HEMORRHAGE: No evidence of intracranial hemorrhage or extra-axial fluid collection. EXTRA-AXIAL SPACES: Cortical sulci, sylvian fissures and basilar cisterns have an unremarkable appear ance. VENTRICULAR SYSTEM: The ventricular system is of normal size and configuration. CEREBRAL PARENCHYMA: No areas of abnormal brain parenchymal attenuation are identified. There is no i ndication of recent infarction. MIDLINE SHIFT OR HERNIATION: There is no mass effect. CEREBELLUM / BRAINSTEM: Brainstem and cerebellum have an unremarkable appearance. MIDLINE STRUCTURES:No abnormalities of the pituitary gland or pineal region are identified. INTRACRANIAL VESSELS:No abnormalities are identified on this noncontrast head CT. ORBITS: visualized portions of the orbits have an unremarkable appearance. SOFT TISSUES of HEAD: No significant abnormality. CALVARIUM: Evaluation of bone windows reveals no abnormalities. PARANASAL SINUSES / MASTOID AIR CELLS: Paranasal sinuses are free from inflammatory mucosal disease. Mastoid air cells are normally pneumatized. ADDITIONAL FINDINGS: None. IMPRESSION: 1. No intracranial abnormalities are identified on head CT without contrast. Signer Name: Ho Hawk MD Signed: 01/18/2020 9:21 AM Workstation Name: [id number]
[2020-01-18] MEDS ORDERED: MAGNESIUM SULFATE 2 GM/50 ML BAG IV ONE (09:42)
[2020-01-18 10:20] VITALS: BP 101/63
--- NOTE | 2020-01-18 10:20 | XRay Report ---
CHEST 1 VIEW 9:26 AM INDICATION / CLINICAL INFORMATION: Cough and fever. COMPARISON: 12/23/19. FINDINGS: SUPPORT DEVICES: None. HEART / MEDIASTINUM: The heart size and pulmonary vasculature are normal. LUNGS / PLEURA: Low lung volumes. Mild increased opacity in the left medial lung base with partial ob scuration of the hemidiaphragm, new since the prior study. No pneumothorax. ADDITIONAL FINDINGS: No significant additional findings. IMPRESSION: Mild increased opacity in the left medial lung base compared to the prior study may be re lated to developing atelectasis or pneumonia. Signer Name: Ravinder Marie MD Signed: 01/18/2020 10:16 AM Workstation Name: [id number]
[2020-01-18] MEDS ORDERED: AMOXICILLIN 500 MG CAP PO ONE (10:30)
[2020-01-18] MEDS ORDERED: AZITHROMYCIN 1 GM ORAL PWDR PACKET PO ONE (10:30)
== END 2020-01-18 11:08 | disposition home or self-care (01) ==
LOC: ED 05:30
DX: R51 Headache (principal); D64.9 Anemia, unspecified; E83.42 Hypomagnesemia; R50.9 Fever, unspecified; Z90.710 Acquired absence of both cervix and uterus; Z98.890 Other specified postprocedural states; Z79.2 Long term (current) use of antibiotics; Z79.899 Other long term (current) drug therapy; Z88.6 Allergy status to analgesic agent
CPT/HCPCS: 36415; 70450; 71045; 80048; 81001; 82550; 83735; 84702; 85014; 85018; 85049; 85610; 87086; 87116; 87400; 87430; 96361; 96365; 96375; 99285; J2405; J2765; J2930; J3475; J7030

== ENCOUNTER 2021-02-10 06:25 | Emergency (ER) | payer MEDICAID ==
--- NOTE | 2021-02-10 06:42 | Emergency Department Report ---
ED Back Pain/Injury HPI - General Chief Complaint: Back Pain/Injury Stated Complaint: LT SIDE BACK PAIN Time Seen by Provider: 02/10/21 06:30 Source: patient Limitations: No Limitations - History of Present Illness Initial Comments: Patient presents with 2 to 3-day history of back pain. She states it started about 3 days ago on the left side and has been persistent. She states that her entire back hurts. She initially thought that she had slept wrong. She states that the pain is continued. She tried Tylenol and Tylenol PM. This provided no symptomatic improvement. Again, pain is left-sided only. The pain does not radiate or migrate. It is worse with movement, inspiration, and movement of her left arm. She states that twisting and turning also hurts. She has not noticed any hematuria. She has had no fevers or chills. There is no cough or congestion. There is no recent travel or trauma. Patient has no musculoskeletal pain otherwise. There has been no history of paresthesias. She denies abdominal pain. - Related Data Previous Rx's Medication Instructions Recorded Last Taken Type Acetaminophen/Codeine [Tylenol 1 tab PO Q6H PRN #10 tab 02/10/21 Unknown Rx /Codeine # 3 tab] cephALEXin [Keflex] 500 mg PO Q8HR #20 cap 02/10/21 Unknown Rx Allergies Allergy/AdvReac Type Severity Reaction Status Date / Time NSAIDS (Non-Steroidal AdvReac Unknown Verified 12/23/19 15:10 Anti-Inflamma ED Review of Systems ROS: Stated complaint: LT SIDE BACK PAIN Other details as noted in HPI Comment: All other systems reviewed and negative Constitutional: denies: fever Eyes: denies: vision change ENT: denies: throat pain Respiratory: denies: cough Cardiovascular: denies: chest pain Endocrine: denies: unexplained weight loss Gastrointestinal: denies: abdominal pain Genitourinary: denies: hematuria Musculoskeletal: as per HPI Skin: denies: rash Neurological: denies: numbness, paresthesias Hematological/Lymphatic: denies: easy bruising ED Past Medical Hx - Past Medical History Previous Medical History?: No Hx Hypertension: No Hx Asthma: No - Surgical History Past Surgical History?: Yes Hx Breast Surgery: Yes (BREAST REDUCTION 2014) Additional Surgical History: HYSTERECTOMY; BUNION removed bilateral feet/ gastric sleeve c section - Family History Family history: no significant - Social History Smoking Status: Never Smoker Substance Use Type: None - Medications Home Medications: Home Medications Medication Instructions Recorded Confirmed Last Taken Type Acetaminophen/Codeine [Tylenol 1 tab PO Q6H PRN #10 tab 02/10/21 Unknown Rx /Codeine # 3 tab] cephALEXin [Keflex] 500 mg PO Q8HR #20 cap 02/10/21 Unknown Rx ED Physical Exam - General Limitations: No Limitations, Other (Pulse ox was noted and normal. She is not hypoxic.) General appearance: alert, in distress (Mild discomfort), obese (Mild) - Head Head exam: Present: atraumatic, normocephalic, normal inspection - Eye Eye exam: Present: normal appearance, EOMI. Absent: scleral icterus - ENT ENT exam: Present: normal orophraynx, mucous membranes moist, normal external ear exam - Neck Neck exam: Present: normal inspection. Absent: tenderness, meningismus - Respiratory Respiratory exam: Present: normal lung sounds bilaterally. Absent: respiratory distress - Cardiovascular Cardiovascular Exam: Present: normal rhythm, tachycardia - GI/Abdominal GI/Abdominal exam: Present: soft. Absent: distended, tenderness, pulsatile mass - Extremities Exam Extremities exam: Present: normal capillary refill. Absent: pedal edema, calf tenderness - Back Exam Back exam: Present: normal inspection, CVA tenderness (L), muscle spasm (Left side and mild), paraspinal tenderness (Left side and mild). Absent: CVA tenderness (R) - Neurological Exam Neurological exam: Present: alert, oriented X3, CN II-XII intact, normal gait, reflexes normal, other (Negative straight leg raise). Absent: motor sensory deficit - Psychiatric Psychiatric exam: Present: normal affect, normal mood - Skin Skin exam: Present: warm, dry ED Course Vital Signs 02/10/21 02/10/21 06:29 07:20 Temperature 97.3 F L 98.6 F Pulse Rate 105 H 90 Respiratory 18 16 Rate Blood Pressure 138/80 Blood Pressure 125/87 [Left] O2 Sat by Pulse 97 100 Oximetry - Reevaluation(s) Reevaluation #1: 02/10/21 06:41 UA was ordered. Lidoderm patch was ordered. Old records reviewed. Reevaluation #2: 02/10/21 08:16 UA was noted. Antibiotics were started. ED Medical Decision Making - Medical Decision Making Patient presents with left leg pain and does have evidence of urinary infection. This would be consistent with pyelonephritis. She does not appear to be toxic. Patient does not have gross contamination with significant epithelial cells. Patient was treated empirically with cephalosporins. She was given analgesics. We have discussed management of urinary tract infections as an outpatient. She does not appear to have a fever. She does not appear to be toxic. I am not concerned for ureteral colic as there is no significant hematuria. She certainly does not have a pulsatile mass suggestive of AAA. There is no left lower quadrant tenderness that would suggest diverticular disease. Critical Care Time: No Critical care attestation.: If time is entered above; I have spent that time in minutes in the direct care of this critically ill patient, excluding procedure time. ED Disposition Clinical Impression: Left paraspinal back pain, Pyelonephritis Disposition: 01 HOME / SELF CARE / HOMELESS Is pt being admited?: No Condition: Stable Instructions: Acute Back Pain, Adult, Pyelonephritis, Adult Additional Instructions: Limit lifting. Alternate ice and heat. Drink plenty of water. Return for problems. Follow-up with a regular doctor for recheck. If you do not have a regular doctor, follow-up with the referral physician. If you develop numbness or tingling in your leg or lose control of your bladder, please return immediately. Prescriptions: cephALEXin [Keflex] 500 mg PO Q8HR #20 cap Acetaminophen/Codeine [Tylenol /Codeine # 3 tab] 1 tab PO Q6H PRN #10 tab PRN Reason: Pain, Moderate (4-6) Referrals: ARMOND PAPPAS MD [Referring] - 3-5 Days JOHN BARRIENTOS MD [Staff Physician] - 3-5 Days
[2021-02-10 07:24] LABS: Bacteria,Urine 1+ /HPF (Negative); Bilirubin,Urine NEG (Negative); Blood,Urine LG (Negative); Color,Urine Yellow (Yellow); Mucus,Urine FEW /HPF; Protein,Urine <15 mg/dL mg/dL (Negative); Urobilinogen,Urine < 2.0 mg/dL (<2.0)
[2021-02-10] MEDS ORDERED: LIDOCAINE 5% 1 EACH PATCH TD ONE (07:37)
[2021-02-10] MEDS ORDERED: cephALEXin 500 MG CAP PO ONE (08:15)
[2021-02-10 08:34] VITALS: BP 130/84
== END 2021-02-10 08:40 | disposition home or self-care (01) ==
LOC: ED 06:25
DX: N12 Tubulo-interstitial nephritis, not specified as acute or chronic (principal); M54.59 Other low back pain; Z90.710 Acquired absence of both cervix and uterus; Z98.890 Other specified postprocedural states; Z88.6 Allergy status to analgesic agent
CPT/HCPCS: 81001; 87076; 87086; 87186; 99283

== ENCOUNTER 2021-03-18 22:25 | Emergency (ER) | payer MEDICAID ==
[2021-03-18 22:34] VITALS: BP 106/72
[2021-03-18] MEDS ORDERED: ACETAMINOPHEN 500 MG TAB PO STA (23:53)
[2021-03-18] MEDS ORDERED: KETOROLAC 10 MG TAB PO ONE (23:53)
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
== END 2021-03-19 00:42 | disposition home or self-care (01) ==
LOC: ED 22:25
DX: R52 Pain, unspecified (principal); V49.40XA Driver injured in collision with unspecified motor vehicles in traffic accident, initial encounter; Y93.89 Activity, other specified; Y92.89 Other specified places as the place of occurrence of the external cause; Y99.8 Other external cause status
CPT/HCPCS: 99282